=== PATIENT | male | born 1990 | race Asian ===

== ENCOUNTER 2019-12-26 13:50 | Emergency (ER) | payer OTHER | END 2019-12-26 14:45 | disposition home or self-care (01) | LOC: ERS 13:50 → MERGE 13:50 → ERS 14:45 | DX: Z20.828 Contact with and (suspected) exposure to other viral communicable diseases (principal); E78.5 Hyperlipidemia, unspecified; E78.00 Pure hypercholesterolemia, unspecified | CPT/HCPCS: 87635; 99283; U0003 ==